=== PATIENT | female | born 1955 | race Two or more races ===

== ENCOUNTER 2024-11-21 14:56 | Emergency (ER) | payer OTHER ==
[~2024-11-21] VITALS: Ht 165.1 cm; Wt 79.0 kg
--- NOTE | 2024-11-21 15:03 | ECG ---
[facility] Test Date: 2024-11-21 Test Time: 15:01:56 Pat Name: MIKAYLA BARBA Department: ED Room: Gender: F Filter Washer: JHON : 1955 Requested By: MOISÉS WOODS Order Number: [id number] Reading MD: Bogdan Webster Measurements Intervals [place] Rate: 67 P: 80 AR: 184 QRS: 62 QRSD: 101 T: 63 QT: 423 QTc: 447 Interpretive Statements Sinus rhythm Probable left atrial enlargement Minimal ST elevation, anterior leads Electronically Signed On 11-21-2024 20:43:25 PDT by Bogdan Webster Please click the below link to view image of tracing.
[2024-11-21 15:30] LABS: Hematocrit 44.6 % (36.0-46.0); Hemoglobin 15.3 g/dL (12.2-16.2); Mean Corpuscular Hemoglobin 33.1 pg (28.0-32.0); Mean Corpuscular Volume 96.7 fL (80.0-100.0); Nucleated Red Blood Cells % 0.1 %
[2024-11-21 15:44] LABS: Alanine Aminotransferase 26 U/L (7-40); Albumin 4.7 g/dL (3.2-4.8); Anion Gap 9 (5-15); BUN/Creatinine Ratio 19.7 (10.0-20.0); Bilirubin, Total 0.3 mg/dL (0.2-1.0); Calcium 9.3 mg/dL (8.7-10.4); Carbon Dioxide 27 mmol/L (20-31); Chloride 98 mmol/L (98-107); Total Protein 7.5 g/dL (5.7-8.2)
[2024-11-21 15:45] LABS: Alkaline Phosphatase 131 U/L (46-116); Blood Urea Nitrogen 41 mg/dL (9-23); Potassium 5.3 mmol/L (3.5-5.1); Sodium 134 mmol/L (136-145)
[2024-11-21 15:47] LABS: Glucose 577 mg/dL (74-106)
--- NOTE | 2024-11-21 16:00 | ED.PDOC ---
HPI Comments This is a 69-year-old female, with a Hx of DM and Hypotension, and a Social History of Smoking, who presents to the ED with a chief complaint of spontaneous substernal chest discomfort for days. Patient reports chest discomfort radiates to the L arm and the jaw. Patient reports high blood sugar levels as of today, with last recorded BG at 500. At this time, patient has no further complaints or modifying factors. Patient otherwise denies further associated symptoms of feve r, chills, cough, dizziness, N/V/D, weakness, or slurred speech. Chief Complaint: Chest Pain Time Seen by MD: 15:56 Reviewed Notes: Medications, Allergies Allergies: Coded Allergies: NO KNOWN ALLERGIES (Unverified , 11/21/24) Information Source: Patient, Relative (Child) Mode of Arrival: Ambulatory Severity: Moderate Duration: Since onset Location: Substernal Radiation: Jaw, Arm (L) Onset: At Rest, With Light Exertion, With Heavy Exertion Associated Signs and Symptoms: Other (chest discomfort ) Past Medical History PAST MEDICAL HISTORY: Arthritis, DM, High Lipids, Hypotension Surgical History: Denies all surgeries TITLE EXAMINER History: No Pertinent TITLE EXAMINER History Family History Family History: Reviewed,noncontributory to illness, No family hx of Cancer, No family hx of DM, No family hx of Heart ester, No family hx of HTN, No family hx ofKidney ester, No family hx of Liver ester, No family hx of Lung ester, No family hx of Stroke Social History Smoker: Cigarettes Constitutional: denies: chills, diaphoresis, fatigue, fever, malaise, sweats, weakness, others EENTM: denies: blurred vision, double vision, ear bleeding, ear discharge, ear drainage, ear pain, ear ringing, eye pain, eye redness, hearing loss, mouth pain, mouth swelling, nasal discharge, nose bleeding, nose congestion, nose pain, photophobia, tearing, throat pain, throat swelling, voice changes, others Respiratory: denies: cough, hemoptysis, orthopnea, SOB at rest, shortness of breath, SOB with excertion, stridor, wheezing, others Cardiovascular: reports: chest pain; denies: dizzy spells, diaphoresis, Dyspnea on exertion, edema, irregular heart beat, left arm pain, lightheadedness, palpitations, PND, syncope, others Gastrointestinal: denies: abdomen distended, abdominal pain, blood streaked bowels, constipated, diarrhea, dysphagia, difficulty swallowing, hematemesis, melena, nausea, poor appetite, poor fluid intake, rectal bleeding, rectal pain, vomiting, others Genitourinary: denies: abnormal vagina bleeding, burning, dyspareunia, dysuria, flank pain, frequency, hematuria, incontinence, pain, , vagina discharge, urgency, others Neurological: denies: dizziness, fainting, headache, left sided numbness, left sided weakness, numbness, paresthesia, pre-existing deficit, right sided numbness, right sided weakness, seizure, speech problems, tingling, tremors, weakness, others Musculoskeletal: denies: back pain, gout, joint pain, joint swelling, muscle pain, muscle stiffness, neck pain, others Integumetry: denies: bruises, change in color, change in hair/nails, dryness, laceration, lesions, lumps, rash, wounds, others Allergic/Immunocompromised: denies: Difficulty Healing, Frequent Infections, Hives, Itching, others Hematologic/Lymphatic: denies: anemia, blood clots, easy bleeding, easy bruising, swollen glands, others Endocrine: denies: excessive hunger, excessive sweating, excessive thirst, excessive urination, flushing, intolerance to cold, intolerance to heat, unexplained weight gain, unexplained weight loss, others Psychiatric: denies: anxiety, bipolar disorder, depression, hopeless, panic disorder, schizophrenia, sleepless, suicidal, others All Other Systems: Reviewed and Negative Physical Exam General Appearance: No Apparent Distress, Normal HEENT: Normal ENT Inspection, Pharynx Normal, TMs Normal Neck: Full Range of Motion, Non-Tender, Normal, Normal Inspection Respiratory: Chest Non-Tender, Lungs Clear, No Accessory Muscle Use, No Respiratory Distress, Normal Breath Sounds Cardiovascular: No Edema, No JVD, No Murmur, No Gallop, Normal Peripheral Pulses, Regular Rate/Rhythm Breast Exam: Deferred Gastrointestinal: No Organomegaly, Non Tender, No Pulsatile Mass, Normal Bowel Sounds, Soft Genitalia: Deferred Pelvic: Deferred Rectal: Deferred Extremities: No calf tenderness, Normal capillary refill, Normal inspection, Normal range of motion, Non-tender, No pedal edema Musculoskeletal : Apperance: Normal Neurologic: Alert, market editor II-XII nml as Tested, No Motor Deficits, Normal Affect, Normal Mood, No Sensory Deficits Cerebellar Function: Normal Reflexes: Normal Skin: Dry, Normal Color, Warm Lymphatic: No Adenopathy EKG EKG #1: Comments Rate of 52, sinus rhythm ST-elevation in V2 V3 V4 V5 EKG #2: Comments EKG 1. At 3:01 p.m. rate of [address] elevation in anterior leads Was a procedure done? Was a procedure done?: No CP Differential Dx Differential Diagnosis: Anxiety / Panic Attack Differential Diagnosis: HTN Essential, HTN Accelerated Differential Diagnosis: Angina, Chest Wall Pain X-Ray, Labs, Meds, VS Vital Signs Date Time Temp Pulse Resp B/P (MAP) Pulse Ox O2 Delivery O2 Flow Rate FiO2 11/21/24 17:05 146/64 11/21/24 16:45 97.7 58 16 146/64 (91) 98 97.7 11/21/24 15:01 67 11/21/24 14:59 98.1 68 18 222/81 100 98.1 Lab Test 11/21/24 16:02 11/21/24 15:02 Range/Units Troponin I High Sensitivity 14 16 </=34 ng/L White Blood Count 7.6 4.4-10.8 10^3/uL Red Blood Count 4.61 4.0-5.20 10^6/uL Hemoglobin 15.3 12.2-16.2 g/dL Hematocrit 44.6 36.0-46.0 % Mean Corpuscular Volume 96.7 80.0-100.0 fL Mean Corpuscular Hemoglobin 33.1 H 28.0-32.0 pg Mean Corpuscular Hemoglobin Concent 34.2 32.0-36.0 g/dL Red Cell Distribution Width 14.8 H 11.8-14.3 % Platelet Count 192 140-450 10^3/uL Mean Platelet Volume 10.8 6.9-10.8 fL Neutrophils (%) (Auto) 66.4 37.0-80.0 % Lymphocytes (%) (Auto) 25.2 10.0-50.0 % Monocytes (%) (Auto) 6.4 0.0-12.0 % Eosinophils (%) (Auto) 1.5 0.0-7.0 % Basophils (%) (Auto) 0.5 0.0-2.0 % Neutrophils # (Auto) 5.1 1.6-8.6 10 ^3/uL Lymphocytes # (Auto) 1.9 0.4-5.4 10 ^3/uL Monocytes # (Auto) 0.5 0-1.3 10 ^3/uL Eosinophils # (Auto) 0.1 0-0.8 10 ^3/uL Basophils # (Auto) 0 0-0.2 10 ^3/uL Nucleated Red Blood Cells 0.1 % Sodium Level 134 L 136-145 mmol/L Potassium Level 5.3 H 3.5-5.1 mmol/L Chloride Level 98 98-107 mmol/L Carbon Dioxide Level 27 20-31 mmol/L Anion Gap 9 5-15 Blood Urea Nitrogen 41 H 9-23 mg/dL Creatinine 2.08 H 0.550-1.02 mg/dL Glomerular Filtration Rate Calc 25 >90 mL/min BUN/Creatinine Ratio 19.7 10.0-20.0 Serum Glucose 577 *H 74-106 mg/dL Calcium Level 9.3 8.7-10.4 mg/dL Total Bilirubin 0.3 0.2-1.0 mg/dL Aspartate Amino Transferase (AST) 24 13-40 U/L Alanine Aminotransferase (ALT) 26 7-40 U/L Alkaline Phosphatase 131 H 46-116 U/L Total Protein 7.5 5.7-8.2 g/dL Albumin 4.7 3.2-4.8 g/dL Current Medications Medications (Trade) Dose Ordered Sig/Bea Route Start Time Stop Time Status Last Admin Sodium Chloride 1,000 ml @ 1,000 mls/hr Q1H ONCE IV 11/21/24 16:00 11/21/24 16:59 DC 11/21/24 16:59 Aspirin 162 mg ONCE ONCE PO 11/21/24 16:30 11/21/24 16:31 DC 11/21/24 17:01 Nitroglycerin (Ntrostat Sublingual) 0.4 mg ONCE ONCE SL 11/21/24 16:30 11/21/24 16:31 DC 11/21/24 17:05 69-year-old female presents here with chest discomfort that she has been having for the last few days. He states it is in her mid chest radiation to left arm and into her mouth. She has a history of diabetes in his smoker with a history of hypotension. She is also diabetic. She noted today that her blood sugars were very high. At this time her EKG demonstrates minimal ST-elevation in the anterior leads. However repeat EKG x2 demonstrates slight increase in the elevation. I have sent these EKGs to taper printed circuit layout on-call. I spoke to Dr. Underwood, he reviewed the EKGs. He said this is not a STEMI. I have also ordered a CBC, CMP, chest x-ray, CBC is largely within normal limits. CMP demon strates high potassium of 5.3, evidence of acute kidney injury with a BUN of 41 creatinine of 2 and evidence of significant hyperglycemia of 577. However patient does not appear to be in DKA. I have written for 1 L of normal saline. Patient has been given aspirin and nitroglycerin in the ER. Currently she states her chest pain has been well. Her 1st set troponin has returned n egative. At this time her heart score is very elevated and she has a high-risk for heart disease. Patient is agreeable to admission. Hospitalist team has been contacted. Images Reviewed?: Images reviewed and evaluated by me Time of 1ST Reevaluation: 18:00 Reevaluation 1ST: Unchanged Patient Education/Counseling: Diagnosis, Treatment Family Education/Counseling: Diagnosis, Treatment SEPSIS Sepsis Screen Date sepsis recognized/suspect: Nov 21, 2024 Time Sepsis recognized/suspect: 1500 Recent Procedure: No On Antibiotic Therapy: No Respiratory Rate >20: No Heart Rate >90: No Temp<36 C (96.8 F) or >38.3 C: No SBP <90 or MAP <65 mmHG: No New Acute Mental Status Change: No Is the patient on CPAP, BIPAP,: No Physician Orders Troponin-I Hs (11/21/24 17:58) Electrocardigram (11/21/24 15:58) Electrocardigram (11/21/24 17:58) Vital Signs Date Time Temp Pulse Resp B/P (MAP) Pulse Ox O2 Delivery O2 Flow Rate FiO2 11/21/24 17:05 146/64 11/21/24 16:45 97.7 58 16 146/64 (91) 98 97.7 11/21/24 15:01 67 11/21/24 14:59 98.1 68 18 222/81 100 98.1 Laboratory Tests Test 11/21/24 15:02 White Blood Count 7.6 10^3/uL (4.4-10.8) Medications Medications Dose Ordered Sig/Bea Route Start Time Stop Time Status Last Admin Dose Admin Aspirin 162 mg ONCE ONCE PO 11/21/24 16:30 11/21/24 16:31 DC 11/21/24 17:01 Nitroglycerin 0.4 mg ONCE ONCE SL 11/21/24 16:30 11/21/24 16:31 DC 11/21/24 17:05 Sodium Chloride 1,000 ml @ 1,000 mls/hr Q1H ONCE IV 11/21/24 16:00 11/21/24 16:59 DC 11/21/24 16:59 Departure 1 Departure Time of Disposition: 17:46 Impression: Primary Impression: Chest pain Qualified Codes: R07.9 - Chest pain, unspecified Additional Impressions: Hyperglycemia NICOLE (acute kidney injury) Hyperkalemia Disposition: ADMITTED INPATIENT Condition: Fair Critical Care Note Critical Care Time?: Yes (30 min-critical care time only) Critical care comment: Time spent evaluating patient, multiple re-evaluations of the patient given EKG changes, speaking to taper printed circuit layout, speaking to the son, managing electrolyte abnormalities including glucose Stability Stability form required: No Heart Score Heart Score: Heart Score Response (Comments) Value History Moderate Suspicious 1 EKG Repolarization Disturb 1 Age >65 2 Risk Factors >3 or Hx ASHD 2 Troponin Normal limit 0 Total 6 I personally scribed for MOISÉS WOODS MD ([email or web address]) on 11/21/24 at 17:30. Electronically submitted by Renay Perla ([facility]). MOISÉS WOODS MD Nov 21, 2024 16:00
[2024-11-21] MEDS: SODIUM CHLORIDE 0.9% 1,000 ML IV ONE ×3 (16:59→20:54)
[2024-11-21] MEDS: NITROGLYCERIN 0.4 MG SL TAB SL ONE (17:05)
--- NOTE | 2024-11-21 17:43 | DVHINCON2 ---
Date Seen: Nov 21, [address] Patel Reason for Consultation Chest pain History of Present Illness 69-year-old primarily Prydeinig-speaking female presents to the ED with complaint of chest pain and shortness of breath started yesterday. The patient describes the chest discomfort as radiating to the left arm and jaw, associated with shortness of breath and vomiting. Blood sugar in the ED was noted to be in the 500s. A 12 lead ECG shows sinus rhythm with no acute ischemic changes, serial troponin are negative. The patient is alert and oriented but is a somewhat limited historian. She reports having undergone multiple prior coronary angiograms with no catheter based interventions. The most recent was approximately five years ago. Past medical history of diabetes type 2, hypertension, hyperlipidemia, ?CAD, and former smoker Past Medical History As stated in HPI Past Surgical History Denies Family History Reviewed, non-contributory to the management of this case. Social History The patient lives at home, denies smoking, alcohol or illicit drugs abuse. Allergies: Coded Allergies: NO KNOWN ALLERGIES (Unverified , 11/21/24) Review of Systems Constitutional: No symptom reported Ears, Nose, & Throat: No symptom reported Eyes: No symptom reported Neurological: No symptoms reported Pulmonary/Respiratory: Shortness of breath Cardiovascular: Chest pain Gastrointestinal: No symptom reported Genitourinary: No symptom reported Musculoskeletal: No symptom reported Skin: No symptom reported Psychiatric: No symptom reported Endocrine: No symptom reported Hemotologic/Lymphatic: No symptom reported Vital Signs Vital Signs Date Time Temp Pulse Resp B/P (MAP) Pulse Ox O2 Delivery O2 Flow Rate FiO2 11/21/24 17:05 146/64 11/21/24 16:45 97.7 58 16 98 97.7 Physical Exam INITIAL VITAL SIGNS: Reviewed by me GENERAL: Alert and interactive. No acute distress. HEAD: Head is normocephalic and atraumatic. EYES: EOMI, PERRL. No scleral icterus. No conjunctival injection. ENT: Moist mucous membranes. NECK: Supple, No masses, Full range of motion. RESPIRATORY: No tachypnea. Clear breath sounds bilaterally. No wheezing, rales, rhonchi. CV: Regular rate and rhythm. No murmurs, rubs, or gallops. GI/: Active bowel sounds, soft, nondistended, nontender. No guarding. No rebound. No masses. No CVA tenderness. INTEGUMENTARY: Warm and dry. No obvious rashes. NEUROLOGIC: Alert and oriented. Face is symmetric. Speech is normal. Moves al l extremities equally. Labs/Diagnostic Data Labs Test 11/21/24 16:02 11/21/24 15:02 Range/Units Troponin I High Sensitivity 14 </=34 ng/L White Blood Count 7.6 4.4-10.8 10^3/uL Red Blood Count 4.61 4.0-5.20 10^6/uL Hemoglobin 15.3 12.2-16.2 g/dL Hematocrit 44.6 36.0-46.0 % Mean Corpuscular Volume 96.7 80.0-100.0 fL Mean Corpuscular Hemoglobin 33.1 H 28.0-32.0 pg Mean Corpuscular Hemoglobin Concent 34.2 32.0-36.0 g/dL Red Cell Distribution Width 14.8 H 11.8-14.3 % Platelet Count 192 140-450 10^3/uL Mean Platelet Volume 10.8 6.9-10.8 fL Neutrophils (%) (Auto) 66.4 37.0-80.0 % Lymphocytes (%) (Auto) 25.2 10.0-50.0 % Monocytes (%) (Auto) 6.4 0.0-12.0 % Eosinophils (%) (Auto) 1.5 0.0-7.0 % Basophils (%) (Auto) 0.5 0.0-2.0 % Neutrophils # (Auto) 5.1 1.6-8.6 10 ^3/uL Lymphocytes # (Auto) 1.9 0.4-5.4 10 ^3/uL Monocytes # (Auto) 0.5 0-1.3 10 ^3/uL Eosinophils # (Auto) 0.1 0-0.8 10 ^3/uL Basophils # (Auto) 0 0-0.2 10 ^3/uL Nucleated Red Blood Cells 0.1 % Sodium Level 134 L 136-145 mmol/L Potassium Level 5.3 H 3.5-5.1 mmol/L Chloride Level 98 98-107 mmol/L Carbon Dioxide Level 27 20-31 mmol/L Anion Gap 9 5-15 Blood Urea Nitrogen 41 H 9-23 mg/dL Creatinine 2.08 H 0.550-1.02 mg/dL Glomerular Filtration Rate Calc 25 >90 mL/min BUN/Creatinine Ratio 19.7 10.0-20.0 Serum Glucose 577 *H 74-106 mg/dL Calcium Level 9.3 8.7-10.4 mg/dL Total Bilirubin 0.3 0.2-1.0 mg/dL Aspartate Amino Transferase (AST) 24 13-40 U/L Alanine Aminotransferase (ALT) 26 7-40 U/L Alkaline Phosphatase 131 H 46-116 U/L Total Protein 7.5 5.7-8.2 g/dL Albumin 4.7 3.2-4.8 g/dL Assessment Atypical chest pain- possible anginal equivalent versus metabolic cause in the setting of severe hyperglycemia No evidence of acute coronary syndrome given negative troponins and nonischemic EKG Heart score 6 NICOLE likely secondary to dehydration and hyperglycemia Poorly-controlled diabetes type 2 Hyperlipidemia Hypertension Ex-smoker Plan/Recommendation (Dr. Greene ): * Continue chest pain protocol and telemetry monitoring * Continue aspirin and statin therapy * Scheduled Cardiolite adenosine stress test for ischemia evaluation * Echocardiogram to assess LV function and wall motion abnormalities * Check A1c, TSH, lipid panel, chest x-ray, for metabolic and risk assessment * IV fluid for management of NICOLE * Managed hyperglycemia per primary team * Optimize medical therapy for diabetes, hypertension, and hyperlipidemia This medical document was created using an electronic medical record system with voice recognition software and computerized dictation system. Although this document has been carefully reviewed, there might still be some phonetic and typographical errors. Occasional wrong-word or ``sound-alike substitutions may have occurred due to the inherent limitations of voice recognition software. These areas are purely typographical due to imperfections of the software programs and do not reflect any compromise in the patient's medical care. Please read the chart carefully and recognize, using context, where these substitutions have occurred. Plan discussed with: Patient Plan discussed with: Patient NYHA Physical activity limitations: NA Date of Service: Nov 21, 2024 Billing Provider: YUDI GREENE MD Cardiology Common Codes: CONSULT ONLY Cardiology Consultation Codes: 27067-[id number] CONSULT <45MIN ISABELLE INMAN [employer] Nov 21, 2024 17:43
--- NOTE | 2024-11-21 18:08 | ECG ---
[facility] Test Date: 2024-11-21 Test Time: 15:53:13 Pat Name: MIKAYLA BARBA Department: ED Room: Gender: F Food Service Tray Attendant: JHON : 1955 Requested By: MOISÉS WOODS Order Number: [id number] Reading MD: Bogdan Webster Measurements Intervals [place] Rate: 52 P: 79 ND: 178 QRS: 73 QRSD: 102 T: 74 QT: 445 QTc: 414 Interpretive Statements Sinus rhythm ST elevation, consider anterior injury Electronically Signed On 11-21-2024 20:43:27 PDT by Bogdan Webster Please click the below link to view image of tracing.
--- NOTE | 2024-11-21 18:08 | ECG ---
[facility] Test Date: 2024-11-21 Test Time: 18:06:10 Pat Name: MIKAYLA BARBA Department: ED Room: Gender: F Release Of Information Clerk: SHON : 1955 Requested By: MOISÉS WOODS Order Number: [id number] Reading MD: Bogdan Webster Measurements Intervals [place] Rate: 55 P: 34 GA: 182 QRS: 72 QRSD: 114 T: 60 QT: 452 QTc: 433 Interpretive Statements Sinus rhythm Borderline intraventricular conduction delay Borderline ST elevation, anterior leads Electronically Signed On 11-21-2024 20:44:17 PDT by Bogdan Webster Please click the below link to view image of tracing.
[2024-11-21 18:20] LABS: INR 0.92 (0.9-1.15); Partial Thromboplastin Time 26.2 SEC (24.5-34.5); Prothrombin Time 9.8 sec (9.3-11.8)
[2024-11-21 18:36] LABS: HDL Cholesterol 46 mg/dL (40-59)
--- NOTE | 2024-11-21 19:01 | DVH ---
XY CHEST TWO VIEWS ROUTINE INDICATION: chest pain TECHNIQUE: Two views of the chest COMPARISON: XR CHEST 1 VIEW on DOS: 08/07/22 FINDINGS/IMPRESSION: LUNGS: No pleural effusion, consolidation, or pneumothorax. MEDIASTINUM: Unremarkable. BONES: No acute osseous abnormality. OTHER: None.
[2024-11-21 19:21] LABS: Cholesterol 255 mg/dL (< 200); Triglycerides 678 mg/dL (< 150)
[2024-11-21 20:05] VITALS: PULSE 58; O2SAT 100
[2024-11-21] MEDS ORDERED: DEXTROSE (50%) 50ML SYRG IV PRN ×2 (20:15→20:30)
[2024-11-21] MEDS: InsuLIN REG 1unit/0.01ml Soln (100units/ml) SC ONE (20:53)
[2024-11-21] MEDS: hydrALAZINE HCL 20 MG/ML VL IV ONE (20:54)
[2024-11-21] MEDS: ACCU-CHEK COMFORT CURVE STRIP VI SCH (23:15)
[2024-11-21] MEDS: InsuLIN REG 1unit/0.01ml Soln (100units/ml) SC SCH (23:17)
[2024-11-21] MEDS: ATORVASTATIN 20 MG TAB PO SCH (23:20)
--- NOTE | 2024-11-21 23:47 | DVHINCON2 ---
Date Seen: Nov 21, [address] Patel Reason for Consultation Chest pain History of Present Illness This is a 69-year-old primarily Togolese-speaking female with a past medical history of diabetes type 2, hypertension, hyperlipidemia, ?CAD, and former smoker presents to the ED with a complaint of chest pain and shortness of breath started yesterday. The patient describes the chest discomfort as radiating to the left arm and jaw, associated with shortness of breath and vomiting. Blood sugar in the ED was noted to be in the 500s. A 12 lead ECG shows sinus rhythm with no acute ischemic changes, serial troponin are negative. The patient is alert and oriented but is a somewhat limited historian. She reports having undergone multiple prior coronary angiograms with no catheter based interventions. The most recent was approximately five years ago. Troponin 14. Patient was admitted to the hospital. I am asked to consult on this patient. Past Medical History As stated in HPI Past Surgical History Denies Allergies: Coded Allergies: NO KNOWN ALLERGIES (Unverified , 11/21/24) Current Medications Current Medications Medications (Trade) Dose Ordered Sig/Bea Route PRN Reason Start Time Stop Time Status Last Admin Aspirin 81 mg DAILY PO 11/22/24 10:00 Atorvastatin Calcium (Lipitor) 40 mg HS PO 11/21/24 22:00 Review of Systems Constitutional: No symptom reported Ears, Nose, & Throat: No symptom reported Eyes: No symptom reported Neurological: No symptoms reported Pulmonary/Respiratory: Shortness of breath Cardiovascular: Chest pain Gastrointestinal: No symptom reported Genitourinary: No symptom reported Musculoskeletal: No symptom reported Skin: No symptom reported Psychiatric: No symptom reported Endocrine: No symptom reported Hemotologic/Lymphatic: No symptom reported Vital Signs Vital Signs Date Time Temp Pulse Resp B/P (MAP) Pulse Ox O2 Delivery O2 Flow Rate FiO2 11/21/24 18:08 55 11/21/24 17:05 146/64 11/21/24 16:45 97.7 16 98 97.7 Physical Exam GENERAL: Alert and oriented x 3. No acute distress. EYES: PERRL, EOMI. Anicteric. HENT: Moist mucous membranes. LUNGS: Clear to auscultation bilaterally. CARDIOVASCULAR: Regular rate and rhythm. ABDOMEN: Soft, nontender and nondistended. EXTREMITIES: No edema. NEUROLOGIC: No focal neurological deficits. SKIN: Warm, dry. Labs/Diagnostic Data Labs Test 11/21/24 17:51 11/21/24 16:02 11/21/24 15:02 Range/Units POC Glucose 389 H 70-106 mg/dl Troponin I High Sensitivity 14 </=34 ng/L White Blood Count 7.6 4.4-10.8 10^3/uL Red Blood Count 4.61 4.0-5.20 10^6/uL Hemoglobin 15.3 12.2-16.2 g/dL Hematocrit 44.6 36.0-46.0 % Mean Corpuscular Volume 96.7 80.0-100.0 fL Mean Corpuscular Hemoglobin 33.1 H 28.0-32.0 pg Mean Corpuscular Hemoglobin Concent 34.2 32.0-36.0 g/dL Red Cell Distribution Width 14.8 H 11.8-14.3 % Platelet Count 192 140-450 10^3/uL Mean Platelet Volume 10.8 6.9-10.8 fL Neutrophils (%) (Auto) 66.4 37.0-80.0 % Lymphocytes (%) (Auto) 25.2 10.0-50.0 % Monocytes (%) (Auto) 6.4 0.0-12.0 % Eosinophils (%) (Auto) 1.5 0.0-7.0 % Basophils (%) (Auto) 0.5 0.0-2.0 % Neutrophils # (Auto) 5.1 1.6-8.6 10 ^3/uL Lymphocytes # (Auto) 1.9 0.4-5.4 10 ^3/uL Monocytes # (Auto) 0.5 0-1.3 10 ^3/uL Eosinophils # (Auto) 0.1 0-0.8 10 ^3/uL Basophils # (Auto) 0 0-0.2 10 ^3/uL Nucleated Red Blood Cells 0.1 % Prothrombin Time 9.8 9.3-11.8 sec Prothrombin Time INR 0.92 0.9-1.15 Activated Partial Thromboplast Time 26.2 24.5-34.5 SEC Sodium Level 134 L 136-145 mmol/L Potassium Level 5.3 H 3.5-5.1 mmol/L Chloride Level 98 98-107 mmol/L Carbon Dioxide Level 27 20-31 mmol/L Anion Gap 9 5-15 Blood Urea Nitrogen 41 H 9-23 mg/dL Creatinine 2.08 H 0.550-1.02 mg/dL Glomerular Filtration Rate Calc 25 >90 mL/min BUN/Creatinine Ratio 19.7 10.0-20.0 Serum Glucose 577 *H 74-106 mg/dL Calcium Level 9.3 8.7-10.4 mg/dL Total Bilirubin 0.3 0.2-1.0 mg/dL Aspartate Amino Transferase (AST) 24 13-40 U/L Alanine Aminotransferase (ALT) 26 7-40 U/L Alkaline Phosphatase 131 H 46-116 U/L Total Protein 7.5 5.7-8.2 g/dL Albumin 4.7 3.2-4.8 g/dL Assessment Atypical chest pain- possible anginal equivalent versus metabolic cause in the setting of severe hyperglycemia. No evidence of acute coronary syndrome given negative troponins and nonischemic EKG. Heart score 6. NICOLE likely secondary to dehydration and hyperglycemia. Poorly-controlled diabetes type 2. Hyperlipidemia. Hypertension. Ex smoker. Plan/Recommendation I agree with your ongoing assessment and care of plan. Patient has been seen by Key Colmenares NP on my behalf, her and I discussed the plan with the patient. Continue chest pain protocol and telemetry monitoring. Continue aspirin and statin therapy. Scheduled Cardiolite adenosine stress test for ischemia evaluation. Echocardiogram to assess LV function and wall motion abnormalities. Check A1c, TSH, lipid panel, chest x-ray, for metabolic and risk assessment. IV fluid for management of NICOLE. Managed hyperglycemia per primary team. Optimize medical therapy for diabetes, hypertension, and hyperlipidemia . Additional plan as per the hospital course. Plan discussed with: Patient NYHA Physical activity limitations: NA Date of Service: Nov 21, 2024 Billing Provider: YUDI GREENE MD Cardiology Common Codes: 35873-RSQEHPG INP/OBS CARE (High) Cardiology Consultation Codes: 33134-DGNBDNPJY CONSULT <45MIN YUDI GREENE MD Nov 21, 2024 18:29
[2024-11-21] MEDS ORDERED: LOSA-534 PO (23:58)
[2024-11-21] MEDS ORDERED: METF-372 PO (23:58)
[2024-11-21] MEDS ORDERED: FURO20TA4 PO (23:58)
[2024-11-21] MEDS ORDERED: HYDR25TA5 PO (23:58)
[2024-11-21] MEDS ORDERED: ALEN70TA74 PO (23:58)
[2024-11-22] MEDS ORDERED: InsuLIN REG 1unit/0.01ml Soln (100units/ml) SC SCH
[2024-11-22] MEDS ORDERED: ACCU-CHEK COMFORT CURVE STRIP VI SCH
[2024-11-22] MEDS ORDERED: METO25TA93 PO (00:01)
[2024-11-22] MEDS ORDERED: ASPI-543 PO (00:01)
[2024-11-22] MEDS ORDERED: EMPA1TAB PO (00:01)
[2024-11-22 00:24] LABS: Urine Protein, UAD Negative (Negative)
[2024-11-22 00:34] LABS: Chloride 106 mmol/L (98-107); Potassium 3.8 mmol/L (3.5-5.1); Sodium 141 mmol/L (136-145)
[2024-11-22 00:35] LABS: Anion Gap 11 (5-15); Carbon Dioxide 24 mmol/L (20-31)
[2024-11-22] MEDS ORDERED: LOSA-535 PO (00:35)
[2024-11-22] MEDS ORDERED: LEVO500T91 PO (00:35)
[2024-11-22] MEDS ORDERED: SITA50TA PO (00:35)
[2024-11-22] MEDS ORDERED: ATOR-507 PO (00:35)
[2024-11-22 00:36] LABS: Calcium 8.9 mg/dL (8.7-10.4)
[2024-11-22 00:40] LABS: BUN/Creatinine Ratio 20.9 (10.0-20.0)
[2024-11-22 01:14] LABS: Blood Urea Nitrogen 33 mg/dL (9-23); Glucose 221 mg/dL (74-106)
[2024-11-22] MEDS: ACETAMINOPHEN 325 MG TAB PO ONE (02:40)
[2024-11-22] MEDS: levoFLOXacin 500 MG TAB PO ONE (02:40)
[2024-11-22] MEDS: SODIUM CHLORIDE 0.9% 1,000 ML IV ONE (05:25)
[2024-11-22] MEDS: SODIUM CHLORIDE 0.9% 2,000 ML IV ONE (08:17)
[2024-11-22 10:00] VITALS: BP 125/60; RESP 17; TEMP 98.6; O2SAT 96
[2024-11-22] MEDS: MECLIZINE HCL 25 MG TAB PO ONE (10:28)
[2024-11-22 12:00] VITALS: PULSE 57
--- NOTE | 2024-11-22 19:24 | DVHPN2 ---
Progress Note - Dictate Date Seen: Nov 22, 2024 Medical Necessity Reason Pt with a Central, PICC or Fol: No Subjective Patient was seen and evaluated in follow up. No overnight events. 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 Patient denies any cardiac symptoms. Patient is cardiac stable for discharge. vital signs Vital Sign Date Time Temp Pulse Resp B/P (MAP) Pulse Ox O2 Delivery O2 Flow Rate FiO2 11/22/24 12:00 57 11/22/24 10:00 98.6 17 125/60 (81) 96 98.6 11/22/24 08:13 Room Air* 0 21 objective GENERAL: Alert and oriented x 3. No acute distress. EYES: PERRL, EOMI. Anicteric. HENT: Moist mucous membranes. LUNGS: Clear to auscultation bilaterally. CARDIOVASCULAR: Regular rate and rhythm. ABDOMEN: Soft, nontender and nondistended. EXTREMITIES: No edema. NEUROLOGIC: No focal neurological deficits. SKIN: Warm, dry. laboratory and microbiology Laboratory Tests 11/22/24 00:08 11/21/24 15:02 Test 11/22/24 00:08 Range/Units Serum Glucose 221 H 74-106 mg/dL Problem List Atypical chest pain- possible anginal equivalent versus metabolic cause in the setting of severe hyperglycemia. No evidence of acute coronary syndrome given negative troponins and nonischemic EKG. Heart score 6. NICOLE likely secondary to dehydration and hyperglycemia. Poorly-controlled diabetes type 2. Hyperlipidemia. Hypertension. Ex smoker. Assessment/Plan Continued all current supportive medical care. Aspirin. IV antibiotics as ordered. Tylenol for pain management. Additional plan as per the hospital course. Plan discussed with: Patient YUDI GREENE MD Nov 22, 2024 13:17
--- NOTE | 2024-11-22 21:02 | DVHSR ---
APPROVED REPORT EXAM: Two-dimensional and M-mode echocardiogram with Doppler and color Doppler. Blood Pressure: 96/54 mmHg INDICATION Rule out ACS RISK FACTORS Height: 65, Weight: 174 DIMENSIONS LVDd4.5 (3.8-5.7cm)LA (2D)3.5 (1.9-4.0cm)Aortic Root (2.0-3.7cm) LVDs2.9 (2.5-4.0cm)LA (MM) (1.9-4.0cm)Aortic Cusp Exc (1.5-2.0cm) EF (%) 66.0 (55-70%)Rt. Atrium3.5 (1.9-4.0cm)Asc. Aorta cm Mitral Valve MitralMitral Stenosis E wave0.93m/sMV Mean GR.mmHg A wave1.03m/sMV Peak GR.mmHg E/A ratio0.92D MVAcm2 DECEL [id number] 1/2 Ttpi07rr IVRTmsDop MVA2.71cm2 Aortic Valve Aortic ValveAortic Stenosis V11.46m/Radha Mean GR.8mmHg V21.89m/Radha Peak GR.14mmHg Other Information Technically limited study due to body habitus. Conclusion MILD LVH AND MILD LV DIASTOLIC DYSFUNCTION LV EF IS 65% AORTIC SCLEROSIS NORMAL RV FUNCTION NORMAL MV,TV AND PV NO EFFUSION
--- NOTE | 2024-11-26 09:17 | ECG ---
[facility] Test Date: 2024-11-21 Test Time: 19:58:27 Pat Name: MIKAYLA BARBA Department: ED Room: Gender: F Fundraising Consultant: VICKIE : [id number] Requested By: MOISÉS WOODS Order Number: [id number] Reading MD: Bogdan Webster Measurements Intervals [place] Rate: 48 P: 80 OR: 184 QRS: 76 QRSD: 105 T: 61 QT: 452 QTc: 404 Interpretive Statements Sinus bradycardia Atrial premature complex Minimal ST elevation, anterior leads Electronically Signed On 11-28-2024 18:36:53 PDT by Bogdan Webster Please click the below link to view image of tracing.
== END 2024-11-22 12:45 | disposition home or self-care (01) ==
LOC: ER 14:56
DX: R07.2 Precordial pain (principal); E78.5 Hyperlipidemia, unspecified; E87.5 Hyperkalemia; N17.9 Acute kidney failure, unspecified; E11.65 Type 2 diabetes mellitus with hyperglycemia; Z79.899 Other long term (current) drug therapy
CPT/HCPCS: 36415; 71046; 80048; 80053; 80061; 81001; 82947; 83036; 83880; 84443; 84484; 85025; 85610; 85730; 93005; 93306; 96361; 96374; 99291; J0360; J1815; J7030; J8597; 82962